=== PATIENT | male | born 1945 | race Two or more races ===

== ENCOUNTER → 2016-12-20 | Outpatient (CLI) | payer MEDICARE, OTHER ==
[~2016-12-20] MED LIST: MYLANTA II30 ML GT; NKM; OMEPRAZOLE20 M3 ORAL; TRAMADOL HCL50 MG ORAL; [UNRECOGNIZED DRUG - REMARK]; bp pill
--- NOTE | 2016-12-20 16:12 | Diagnostic Imaging Report ---
Indication: Chronic left hip pain Technique: Coronal and axial T1 fast spin echo, coronal and axial fast spin-echo IR imaging of the bilateral hips. Proton density sagittal and coronal fat-saturated images of the left hip. Comparison: Reference made to CT of the abdomen and pelvis dated 10/20/2015 Findings: There is extensive destruction of the left hip joint. The left femoral head and most of the neck are completely destroyed. There is marrow edema in what remains of the femoral neck, extending into the intertrochanteric region of the femoral shaft. There is a large joint effusion. There is also destruction of the superficial aspect of the acetabulum. Marrow edema is seen extending into the acetabulum and left superior pubic ramus. There are degenerative changes of the right hip, with subchondral cysts and loss of joint space. There are degenerative changes of the lower lumbar spine. Note that on the prior CT scan, the left hip joint was essentially unremarkable. Impression: Extensive destructive change of the left hip joint, with a large joint effusion, complete destruction of the left femoral head, destruction of the articular surface of the acetabulum, and bone marrow edema involving the residual proximal femur, left acetabulum, and left superior pubic ramus. 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 Findings could less likely represent a severe noninfectious inflammatory arthropathy. Correlation with clinical findings is recommended. Degenerative changes of the right hip and lumbar spine Dr. Alves has been paged, has not yet responded as of [id number]
== END | disposition home or self-care (01) ==
LOC: MRI 10:21
DX: M25.552 Pain in left hip (principal); M25.452 Effusion, left hip